=== PATIENT | male | born 1945 | race Caucasian/White ===

== ENCOUNTER 2021-05-12 21:12 | Observation (INO) | payer MEDICARE, MEDICAID ==
[~2021-05-12] VITALS: Ht 170.2 cm; Wt 66.4 kg
[~2021-05-12 21:12] MED LIST: ATORVASTATIN CA40 MG PO; LOSARTAN POTASS50 MG PO
--- OUTSIDE RECORDS SUMMARY | 2021-05-12 21:20 | XMS ---
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 May VISIT COUNT (12 MO.) 2 [facility] TOTAL 2 NOTE: Visits indicate total known visits. 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
--- NOTE | 2021-05-13 04:32 | NUR ---
REPORT FROM WILIAM QUINN IN E.D., PT ALERT AND ORIENTED, NO MEDICATIONS OR FLUIDS GIVEN IN E.D., PT HAS REPORTED PAIN 1-2/10 WHILE IN E.D. PT HAS E.D. HOLDING ORDERS FOR NOW.
--- NOTE | 2021-05-13 04:54 | NUR ---
PT IN ROOM 115, HE IS RESTING IN BED ALERT AND ORIENTED, HE REPORTS NO PAIN OR NAUSEA, SCD EQUIPMENT SET OUT NO ORDER AT THIS TIME. IVF INFUSING PER ORDERS, PT GIVEN EDUCATION ON PANCREATITIS AND ADMIT FOLDER. PT EDUCATED ON PLAN OF CARE FOR PANCREATITIS. PT IS HARD OF HEARING. HE IS VERY COOPERATIVE WITH CARE PLAN. CUP OF WATER WITH SPONGES FOR WETTING HIS MOUTH. DALE [employer] AUDIT ADVISOR IN ROOM FOR ADMISSION CHARTING.
--- NOTE | 2021-05-13 06:25 | NUR ---
PT RESTING IN BED EYES CLOSED RR EVEN, NO DISTRESS NOTED, CONTINUOUS BEDSIDE PULSE OXIMETRY SET UP AND ON AT BEDSIDE PER BRIDGE ORDERS. BED ALARM ON FOR PT SAFETY, CALL LIGHT IN REACH
--- NOTE | 2021-05-13 08:45 | NUR ---
REPORT RECEIVED FROM NIGHT RN AND PT. CARE RESUMED. PT IS ALERT AND ORIENTED. HE DENIES PAIN OR NAUSEA. BOWEL TONES ACTIVE AND SCABS PRESENT ON ABDOMEN FROM PREVIOUS SURGERY. IV WNL AND FLUSHES. DISCUSSED POC. LEFT RESTING WITH ALARM ON AND CALL LIGHT IN REACH.
--- NOTE | 2021-05-13 12:27 | NUR ---
ROUNDING ON PT. HE DENIES NEEDS AT THIS TIME. STATES "I'M READY TO GET THE HELL OUT OF HERE!" PT. REASSURED IS MAKING ROUNDS NOW. LEFT RESTING WITH CALL LIGHT IN REACH.
--- NOTE | 2021-05-13 12:45 | NUR ---
ROUNDED ON PT. PT SITTING IN BED TALKING TO CASE MANAGEMENT. PT DENIES PAIN OR NAUSEA. FLUIDS CHANGED TO NEW BAG. DENIES NEEDS. CALL LIGHT IN REACH.
--- NOTE | 2021-05-13 13:31 | NUR ---
PATIENT SITITNG UP IN BED, 2 GUESTS IN ROOM. VITALS CHARTED. CALL LIGHT IN EASY REACH, NO OTHER NEEDS AT THIS TIME
--- NOTE | 2021-05-13 13:51 | NUR ---
PT. IS RESTING IN BED WITH FAMILY AT BEDSIDE. HE DENIES PAIN AND NAUSEA. HE IS ON ROOM AIR AND O2 SAT IS 92%. IV SITE WNL. PT. DENIES FURTHER NEEDS. LEFT RESTING WITH CALL LIGHT IN REACH.
--- NOTE | 2021-05-13 14:00 | NUR ---
Spoke with Al, he has returned following [place]. He is denying complaints and wants to go home. Son and friend are in the room and state they can assist with any needs. Encouraged pt. to wait until he can see Dr. Davila. Pt drives, does not use any DME. Home when cleared medically.
[2021-05-13] MEDS ORDERED: VALSARTAN40 MG PO (15:36)
[2021-05-13] MEDS ORDERED: MULTI VITAMIN1 EACH PO (15:57)
--- NOTE | 2021-05-13 15:57 | NUR ---
MED REC COMPLETE
--- NOTE | 2021-05-13 19:54 | NUR ---
PT UP TO BR, VOIDED CLEAR YELLOW URINE. BACK TO BED, TOLERATED WELL. COOP WITH ASSESSMENT. ON ROOM AIR, CLEAR LUNGS, ABD SOFT, TENDER LAP ABD SITES WITH OLD SS IN PLACE, WOUND SCABBING OVER. SL LFA PATENT. PLEASANT. TOLERATAING LIQUIDS, NO EMESIS, CALL LIGHT IN PLACE, BED ALARM ON
--- NOTE | 2021-05-13 21:59 | NUR ---
UP TO BR, VOIDED IN URINAL, BACK TO BED, TOLERATED WELL, NO FURTHER C/O ABD PAIN OR N/V, FLUIDS AT BEDSIDE, USES CALL LIGHT. STEADY GAIT WHEN UP. BED ALARM OFF. PT ASKED TO CALL RN PRIOR TO GETTING UP, STATED UNDERSTANDING
--- NOTE | 2021-05-13 23:45 | NUR ---
IN TO CHECK ON PTs URINAL, NO FURTHER NEEDS AT THIS TIME
--- NOTE | 2021-05-14 04:53 | NUR ---
Pt on room air, clear lungs, no cough, no c/o abd pain or n/v. lap abd sites with old ss in place, scabbing over icision sites, healing. bruised area below umbilical area. abd tender, soft, ramesh, has passes gas, no bm since 05/12. on clear liquids, tolerating fresh water small amounts, no emesis. Independent in room, voiding QS, sl patent. Alert and oriented, QUECHAN
--- NOTE | 2021-05-14 08:30 | NUR ---
REPORT RECEIVED FROM NIGHT RN AND PT. CARE RESUMED. PT. IS ALERT AND ORIENTED. HE DENIES PAIN OR NAUSEA. BROUGHT JELLO AND JUICE. ABDOMEN NON-DISTENDED AND BOWEL TONES ACTIVE. STERI STRIPS IN PLACE OF OVER ABDOMINAL LAP. SITES FROM PREVIOUS SURGERY. IV SITE WNL AND FLUSHES. DISCUSSED POC AND MEDS. LEFT RESTING WITH CALL LIGHT IN REACH.
--- NOTE | 2021-05-14 10:25 | NUR ---
ALL DISCHARGE INSTRUCTIONS REVIEWED WITH PT. AND QUESTIONS ANSWERED. PT. LEFT WITH ALL BELONGINGS VIA WHEELCHAIR WITH STAFF. IV REMOVED WITH CATH. INTACT. VITALS STABLE AND PT. DENIES PAIN.
--- NOTE | 2021-05-14 11:29 | NUR ---
ENCOUNTERED PT STANDING IN DOORWAY TO -DRESSED. SAID HE WAS READY TO DC-JUST WAITING FOR SOMEONE TO LET HIM GO. CHEYENNE CANTOR HAD PAPERWORK READY, I TOOK PT IN WC TO HIS VEHICLE, PT TOLD HE HE HAD JUST QUIT SMOKING, LUNG DISEASE IS STARTING GAVE ENCOURAGEMENT TO SEEK OUT RESOURCES WITH PCP. HE SAID HE PLANS TO.
--- NOTE | 2021-05-15 11:23 | HP ---
[facility] [address] [place], [place] [address] Signed ADMISSION DATE: 05/12/2021 REASON FOR ADMISSION: Recurrent abdominal pain, elevated lipase; recent history of laparoscopic cholecystectomy for gallstone pancreatitis. HISTORY: This 76-year-old white man, who is very hard of hearing and known to me from the recent past. He had been admitted to the hospital on May [address] Solano with abdominal pain and findings showing markedly elevated lipase level. Gallbladder ultrasound was normal, but an MRCP was performed showing layering lea gallstone type material in the gallbladder. He underwent laparoscopic cholecystectomy with cholangiogram by me on May 06, 2021, which clearly showed a subacutely inflamed and edematous gallbladder with conventional biliary anatomy including cholangiogram and contents of the gallbladder showing thick black tar like bile with green stone like material. The liver was otherwise normal. The patient had seen Dr. Sandoval in [place] earlier in the day; he presents to the emergency room at approximately 1 a.m. and evaluated by Dr. Guillen, found to have no evidence of systemic toxicity, but an elevated lipase 5836. His liver enzymes were normal. CBC was normal. A CT scan was performed, which showed continued small cystic changes of common hepatic duct as well as peripancreatic stranding consistent with pancreatitis without new abnormality. I was called at approximately 2 a.m. with this information and recommended he be directly admitted to the hospital with IV fluids for volume support and avoidance of oral intake for observation. The lipase was requested to be drawn in the morning, which was performed showing lipase level to be 2952 at approximately 5 a.m. (previously 5836 at 1:20 a.m.) The patient now says he feels quite well overall. He is having no vomiting or nausea and no fever or chills. He maintains n.p.o. status as per orders. REVIEW OF SYSTEMS: He denies any shortness of breath or chest pain. He is having no dysphagia or dysuria. Denies any blood per rectum. He is not currently having abdominal pain. PHYSICAL EXAMINATION: GENERAL: Pleasant white man, who looks to be alert and oriented. He shows no sign of Electronically Signed By: DEVIN PARSONS MD 05/15/21 1123 PATIENT NAME: GAYATRI WHEAT HISTORY AND PHYSICAL DATE OF : 41 REPORT #: [id number] PHYSICIAN: DEVIN PARSONS MD PCP: GAEL SANDOVAL MD REPORT IS CONFIDENTIAL AND NOT TO BE RELEASED WITHOUT AUTHORIZATION [facility] [address] [place], [place] [address] Signed systemic toxicity. VITAL SIGNS: Temperature 98.2, pulse 80, blood pressure 145/78. HEENT: Trachea is midline. Mucous membranes reasonably moist. CHEST: Clear. HEART: Regular without murmur. ABDOMEN: Nondistended and soft. I detect no focal tenderness currently. EXTREMITIES: Show no clubbing, cyanosis, or edema. LABORATORY DATA: Most recent laboratory studies showed lipase at 2952, previously 5836. Notably, albumin is 3 slightly low, and other studies are normal as well. His COVID test is negative as are the other influenza subtypes. Lab studies at admission confirmed white count of 7.2, hematocrit 45.7, platelets 241,000. Chem profile abnormal for a glucose of 115, bilirubin 3.3, lipase 5836, subsequently 2952. Imaging studies were reviewed including observation of a normal-appearing liver, stomach, and spleen. There are clips in the edge of the gallbladder fossa as would be expected. ASSESSMENT: The patient has some brief amount of abdominal pain, presented to the emergency room and found to have a markedly elevated lipase level of greater than 5800. I had advised that he be admitted and given fluids, bowel rest, and so on. His lipase now was down just over 2900. He currently appears impressively symptom-free. I would have him maintain avoidance of solid food, but allowed clear liquids. We will recheck his lipase in the morning. His clinical pancreatitis appears to be resolving if it has not already resolved. A residual elevated lipase following his intervention previously is notable. His lipase was as high as 6176 on 05/04/2021 and as low as 210 on day of discharge May 06. The source of his pancreatitis remains uncertain; certainly, there was a possibility that a small amount of retained stone debris was passed initiating a pancreatitis episode, but he did not have significant clinical symptoms toward the end of his visit in the emergency room. We will continue with his IV fluids, allow clear liquids. Monitor closely. Lipase level will be checked in the morning. Electronically Signed By: DEVIN PARSONS MD 05/15/21 1123 PATIENT NAME: GAYATRI WHEAT HISTORY AND PHYSICAL DATE OF : 41 REPORT #: [id number] PHYSICIAN: DEVIN PARSONS MD PCP: GAEL SANDOVAL MD REPORT IS CONFIDENTIAL AND NOT TO BE RELEASED WITHOUT AUTHORIZATION [address] [address] Signed Devin Parsons MD JM/MODL /[id number] cc: Precious Guillen MD Copies: PRECIOUS GUILLEN MD ~ Electronically Signed By: DEVIN PARSONS MD 05/15/21 1123 PATIENT NAME: GAYATRI WHEAT HISTORY AND PHYSICAL DATE OF : 41 REPORT #: [id number] PHYSICIAN: DEVIN PARSONS MD PCP: GAEL SANDOVAL MD REPORT IS CONFIDENTIAL AND NOT TO BE RELEASED WITHOUT AUTHORIZATION
--- NOTE | 2021-05-15 11:23 | DS ---
[facility] [address] [place], [place] [address] Signed ADMISSION DATE: 05/12/2021 DISCHARGE DATE: 05/14/2021 REASON FOR ADMISSION: This 76-year-old white man, who is very hard of hearing, is known to me from the past having been admitted to the hospital on May [address] Parker with abdominal pain and findings consistent with acute pancreatitis. Gallbladder ultrasound was found to be normal, but an MRCP confirmed layering lea gallstone material in the gallbladder. He underwent laparoscopic cholecystectomy with cholangiogram by me on May 06, 2021, showing a subacutely inflamed and an edematous gallbladder. Cholangiogram showed no evidence of retained stone or stone material. Findings of the gallbladder showed thick tar like bile with green type stone material that was sludge in very small stones. The liver was otherwise normal. He was discharged to home in good condition and the day of admission, saw his primary provider, Dr. Sandoval in [place]. Later in the day, he had rather severe abdominal pain, presented to the emergency room at approximately 1:00 a.m., was evaluated by Dr. Pang, found to have no evidence of systemic toxicity, but an elevated lipase at 5836. His discharge lipase was 220. His liver enzymes were normal and CBC was normal. I recommended that he be admitted for observation, IV fluids, and bowel rest to assess the extent of the problem and whether it would worsen. PHYSICAL EXAMINATION: GENERAL APPEARANCE: Thin white man, who is hard of hearing. Trachea is midline. CHEST: Clear. HEART: Regular without murmur. ABDOMEN: Soft and at this time, nontender. There is no mass. No ascites. LABORATORY STUDIES: Showed an elevated lipase. It is 5836. CBC normal. HOSPITAL COURSE: He was admitted, given IV fluids and made n.p.o. and observed. Repeat lipase in the morning showed it to be decreased to 2952. He was given clear liquids, which he tolerated well. His lipase returned completely to normal on May 14, 2021, at 264. Other enzymes were noted to show an alkaline phosphatase of 130, slightly elevated from time of admission, which was 114. Bilirubin was normal. His white count yesterday of 7.2. Electronically Signed By: DEVIN PARSONS MD 05/15/21 1123 PATIENT NAME: GAYATRI WHEAT DISCHARGE SUMMARY DATE OF : 41 REPORT #: [id number] PHYSICIAN: DEVIN PARSONS MD PCP: BOBBY SANDOVAL MD REPORT IS CONFIDENTIAL AND NOT TO BE RELEASED WITHOUT AUTHORIZATION [facility] [address] [place], [place] [address] Signed He has tolerated clear liquid diet and will be challenged with a regular diet and if he tolerates that, able to be discharged. I am unable to explain the cause of his transient apparent pancreatitis as manifested by abdominal pain and elevated lipase level. There may have been some residual sludge in the biliary tree, which passed through and now has cleared. FOLLOWUP PLAN: He will see me back in the office as previously arranged in his postop visit. If he has problems, further reassessment will be made. DISCHARGE MEDICATION: 1. Atorvastatin 40 mg p.o. daily. 2. Valsartan 40 mg p.o. daily. 3. Multivitamin one p.o. daily. DISCHARGE DIAGNOSES: 1. Recurrent pancreatitis, status post laparoscopic cholecystectomy with cholangiogram. 2. Presbyacusis. 3. Smoker daily. 4. Dyslipidemia. MD RANDY Garber/MODL /[id number] cc: MD Bobby Baez MD [place] Electronically Signed By: DEVIN PARSONS MD 05/15/21 1123 PATIENT NAME: GAYATRI WHEAT DISCHARGE SUMMARY DATE OF : 41 REPORT #: [id number] PHYSICIAN: DEVIN PARSONS MD PCP: BOBBY SANDOVAL MD REPORT IS CONFIDENTIAL AND NOT TO BE RELEASED WITHOUT AUTHORIZATION [facility] [address] [place] [id number] Signed Copies: ANTONIA PARKER MD Electronically Signed By: DEVIN PARSONS MD 05/15/21 1123 PATIENT NAME: GAYATRI WHEAT DISCHARGE SUMMARY DATE OF : 41 REPORT #: [id number] PHYSICIAN: DEVIN PARSONS MD PCP: BOBBY SANDOVAL MD REPORT IS CONFIDENTIAL AND NOT TO BE RELEASED WITHOUT AUTHORIZATION
== END 2021-05-14 10:28 | disposition home or self-care (01) ==
LOC: ED 21:12 → MS 21:13
PROVIDERS: ADMIT Surgery; ATTEND Surgery
DX: K85.80 Other acute pancreatitis without necrosis or infection (principal); H91.10 Presbycusis, unspecified ear; E78.5 Hyperlipidemia, unspecified; J43.9 Emphysema, unspecified; Z90.49 Acquired absence of other specified parts of digestive tract; Z20.822 Contact with and (suspected) exposure to COVID-19
CPT/HCPCS: 36415; 74177; 80053; 83690; 85025; 99284-25; C9803; J7121; Q9967; U0003